=== PATIENT | female | born 1955 | race Caucasian/White ===

== ENCOUNTER → 2018-12-28 | Outpatient (CLI) | payer OTHER ==
--- NOTE | 2018-12-28 16:45 | RAD ---
Thyroid ultrasound, 12/28/2018: HISTORY: Abnormal outside CT chest exam The right lobe of the gland measures 4.9 x 1.7 x 1.8 cm while the left lobe of the gland measures 2.6 x 0.5 x 0.5 cm. The thyroid gland is heterogeneous containing multiple nodules. The largest nodule lies in the midportion of the right lobe of the gland. It demonstrates cystic and solid components as well as internal calcifications. It measures 2.6 x 1.7 x 1.7 cm. It is wider than tall. It is quite vascular. The adjacent thyroid tissue is heterogeneous. There is a 11 x 7 x 4 mm smooth nodule in the left side of the isthmus. It is mildly heterogeneous. No internal calcification is seen. A 9 x 6 x 4 mm oval shaped nodule is present in the right side of the isthmus. Its margins are smooth. It contains a small echogenic focus. A 6 x 2 x 3 mm smooth hypoechoic nodule is noted in the left lobe of the gland. It is wider than tall. No internal calcifications are seen. IMPRESSION: Multinodular thyroid gland with a dominant complex nodule in the right lobe as described above. It is considered to be mildly suspicious. Ultrasound-guided biopsy should be considered for further evaluation. Electronically signed by: Ander Duarte MD (12/28/2018 4:43 PM) [facility]
== END | disposition home or self-care (01) ==
LOC: US 09:00
PROVIDERS: ATTEND Nurse Practitioner Family
DX: E04.2 Nontoxic multinodular goiter (principal)
CPT/HCPCS: 76536

== ENCOUNTER → 2021-04-13 | Outpatient (CLI) | payer OTHER ==
--- NOTE | 2021-04-13 15:28 | RAD ---
EXAM: Chest, 2 views; lumbar spine, 3 views. HISTORY: Pain. Fall. COMPARISON: None. FINDINGS: Chest: 2 views of the chest are obtained. There is no infiltrate, pleural effusion or pneum othorax. The heart is normal in size. 3 views of the lumbar spine are obtained. There is a moderate to severe L2 compression fracture with minimal retropulsion of the posterior superior cortex. This appears to be acute. There is a moderate L1 compression fracture without retropulsion of the cortex and there is a mild L5 superior endplate c ompression deformity, both of which are of uncertain chronicity. There is minimal retrolisthesis of L 4 and L5. There is disc space narrowing and endplate remodeling predominantly at this level. IMPRESSION: 1. Moderate to severe L2 compression fracture with slight retropulsion of the cortex. This is acute i n appearance. 2. Moderate L1 wedge compression fracture and mild L5 superior endplate compression deformity, both o f which are of uncertain chronicity. 3. 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 3. No acute thoracic finding. Electronically signed by: Mami Mcdonald MD (04/13/2021 3:26 PM) [id number]
== END ==
LOC: RAD 10:37
PROVIDERS: ATTEND Nurse Practitioner Family
DX: M47.816 Spondylosis without myelopathy or radiculopathy, lumbar region (principal); M43.8X6 Other specified deforming dorsopathies, lumbar region; M48.56XA Collapsed vertebra, not elsewhere classified, lumbar region, initial encounter for fracture
CPT/HCPCS: 71046; 72100